=== PATIENT | female | born 1990 | race Caucasian/White ===

== ENCOUNTER 2017-10-21 09:57 | Inpatient (IN) ==
[2017-10-21] MEDS ORDERED: Ondansetron 4 MG/2 ML VIAL IVP PRN (10:09)
[2017-10-21] MEDS ORDERED: *HR* Nalbuphine 20 MG/ML AMPUL IVP PRN (10:09)
[2017-10-21] MEDS ORDERED: Famotidine 20 MG/2 ML VIAL IVP PRN (10:09)
[2017-10-21] MEDS ORDERED: Naloxone 0.4 MG/ML INJ IVP PRN (10:09)
[2017-10-21] MEDS ORDERED: Metoclopramide 10 MG/2 ML VIAL IVP PRN (10:09)
[2017-10-21] MEDS ORDERED: Ringers Solution, Lactated 1,000 ML IVC SCH (10:15)
[2017-10-21] MEDS ORDERED: miSOPROStol 25 MCG TABLET VG SCH (10:30)
[2017-10-21 10:34] LABS: Basophils # 0.1 K/mcL (0.0-0.2); Basophils % 0.4 %; Eosinophils # 0.2 K/mcL (0.0-0.6); Eosinophils % 1.2 %; Hemoglobin 12.6 g/dL (11.5-15.4); Immature Granulocytes % 1.2 % (0-4); Immature Platelets 5.1 % (1.1-6.1); Lymphocytes # 2.4 K/mcL (0.6-4.6); Lymphocytes % 14.9 %; Mean Corpuscular Hemoglobin 35.1 pg (28.0-33.3); Mean Corpuscular Volume 100.3 fL (83.0-100.0); Mean Platelet Volume 9.8 fL (9.4-12.4); Monocytes % 6.4 %; Neutrophils # 12.3 K/mcL (1.6-8.9); Platelet Count 292 K/mcL (140-400); Red Blood Count 3.59 M/mcL (3.82-4.97); Red Cell Distribution Width 13.5 % (11.5-14.5); Segmented Neutrophils % 75.9 %
--- NOTE | 2017-10-21 11:02 | OB/GYN History & Physical ---
Date of Encounter: 10/21/17 Time of Encounter: 10:50 Assessment and Plan (1) and not yet delivered in third trimester Current visit: Yes Status: Acute (2) 40 weeks gestation of Current visit: Yes Status: Acute (3) Elective induction of labor planned Current visit: Yes Status: Acute We will induce with a Zavala catheter and Cytotec plan is to anticipate vaginal delivery History of Present Illness HPI: Ms. Rees is a 27 year old female 4 para 2011 at 40-0/7 weeks by last menstrual period equal to 10 week ultrasound who presented for induction of labor secondary to term . She was wanting to try and go in labor on her own but wanted be delivered by her due date if she has not delivered. She denies any contractions denies any leaking fluid still having good movement. Patient is Rh+, rubella positive, GBS negative Past Med Surg Social Fam HX - Past Medical History Source: patient, old records reviewed Medical history: no medical history Psychiatric history: no psych history - Past Surgical History Surgical History: other (Suction dilatation and curettage, tonsillectomy) - Social History Smoking Status: Current every day smoker Packs per day: 0.5 Smokeless Tobacco Status: No Alcohol use: none Drug use: none Occupational status: employed Current living situation: Home - Independent Activity Level: Independent ambulation Recent Out of Country Travel Within the Last 8 Weeks: No Exposure or Possible Exposure to Illness During Travel: No - Family History Grandmother Living Status: Still Living Hx Family Cardiac Disorders: No Hx Family Respiratory Disorders: No Hx Family Cancer: No Hx Family GI Disorders: No Hx Family Genitourinary Disorders: No Hx Family Endocrine Disorder: No Hx Family Musculoskeletal Disorders: No Hx Family Neuromuscular Disorders: No Hx Family Neurologic Disorders: No Hx Family HEENT Disorders: No Hx Family Autoimmune Disorders: No Hx Family Reproductive Disorders: No Hx Family Psychosocial Disorders: No Hx Family Medical Disorders: No - Additional Family History Additional family history: Family history noncontributory Obstetrical History - Pregnancies : 4 Para: 2 Term: 2 : 1 Ab's: 1 Livin Medications and Allergies Vitamin Tablet 1 tab PO DAILY 06/23/16 [History] Breast Pump [BREAST PUMP] 1 each .ROUTE AD #1 each 06/24/16 [Rx] Ibuprofen [Motrin] 600 mg PO Q6H PRN #40 tablet 06/24/16 [Rx] 3 Allergy/AdvReac Type Severity Reaction Status Date / Time Penicillins Allergy Hives Verified 06/23/16 04:13 Review of System OB All systems PM: reviewed and no additional remarkable complaints except as stated Exam - Constitutional Constitutional: well developed, well nourished, no acute distress, average body habitus - HEENT HEENT: EOMI, PERRL - Neck Neck exam: full ROM - Lungs Respiratory exam: CTAB - Cardiovascular Cardiovascular exam: RRR - Abdomen Abdomen: Present: bowel sounds normal, gravid - Extremities Extremities exam: full ROM - Vulva Vulva: bilateral: normal - Vagina Vagina: Present: normal moisture - Cervix Dilation: 2 Effacement: 80 Station: -2 (Zavala catheter placed within the cervix 30 mL balloon inflated 25 g of Cytotec placed in the posterior fornix) - Uterus Uterus exam: Present: normal size Results Result Diagrams: 10/21/17 10:26 Abnormal lab results WBC 16.2 K/mcL (4.3-11.1) H 10/21/17 10:26 RBC 3.59 M/mcL (3.82-4.97) L 10/21/17 10:26 MCV 100.3 fL (83.0-100.0) H 10/21/17 10:26 MCH 35.1 pg (28.0-33.3) H 10/21/17 10:26 Neutrophils # 12.3 K/mcL (1.6-8.9) H 10/21/17 10:26 All other labs normal. - VTE Reasons for not Prescribing Prophylaxis: Treatment not Indicated - Low risk for VTE
[2017-10-21 11:11] LABS: Amphetamine Screen,Urine Negative ng/mL (Cutoff=1000); Barbiturate Screen,Urine Negative ng/mL (Cutoff=200); Benzodiazepines Screen,Urine Negative ng/mL (Cutoff=200); Cannabinoid Screen,Urine Negative ng/mL (Cutoff = 50); Cocaine Screen,Urine Negative ng/mL (Cutoff= 300); Opiate Screen,Urine Negative ng/mL (Cutoff=300); Phencyclidine Screen,Urine Negative ng/mL (Cutoff=25)
--- NOTE | 2017-10-21 14:07 | OB Labor Progress Note ---
Date of Encounter: 10/21/17 Time of Encounter: 14:00 Labor Progress Note - Subjective Subjective: Patient's catheter is out she is getting a little bit more uncomfortable and started tolerating the contractions. - Cervix Cervix: 3/80/-3 posterior AROM clear fluid - Heart Tones Heart Tones: heart tones 140s reactive - [place]: Contractions irregular every 2-4 minutes not picking up well at this time due to the way patient is sitting. - Plan Plan: Continue current care we will get epidural when ready plan is to anticipate vaginal delivery
--- NOTE | 2017-10-21 16:43 | OB Labor Progress Note ---
Date of Encounter: 10/21/17 Time of Encounter: 16:45 Labor Progress Note - Subjective Subjective: Patient and contractions were still not that uncomfortable. - Cervix Cervix: 4/80/-2 - Heart Tones Heart Tones: heart tones 140s reactive - [place]: Contractions every 2-3 minutes irregular - Plan Plan: We will augment with Pitocin plan is to anticipate vaginal delivery
[2017-10-21] MEDS ORDERED: Oxytocin 20 units/ LR 1000 mL 20 UNIT/1,000 ML BAG IVC SCH (16:45)
[2017-10-21] MEDS ORDERED: Oxytocin 20 units/ LR 1000 mL 20 UNIT/1,000 ML BAG IVC ONE (16:51)
[2017-10-21] MEDS ORDERED: *HR* Ropivacaine/PF 0.2% 10 ML AMPUL ONE (18:07)
[2017-10-21] MEDS ORDERED: *HR* FentaNYL (PF) 100 MCG/2 ML VIAL ONE (18:08)
[2017-10-21] MEDS ORDERED: Epidural Premix (fent/bupiv) 110 ML EP ONE (18:08)
--- NOTE | 2017-10-21 18:37 | Anesthesia Evaluation PreOp ---
Date of Encounter: 10/21/17 Time of Encounter: 18:35 - Past History Planned Operation: [place] Cardiac History: Denies any Significant Hx Pulmonary History: Smoker (1/2 pack per day) DISPATCH MANAGER History: Denies Any Significant HX Other Medical History: Denies Any Significant HX Anesthesia History: No Prior Anesthetic Complications, Past Anesthesia : Yes () Alcohol Use: none Drug use: none Medications and Allergies Vitamin Tablet 1 tab PO DAILY 06/23/16 [History] Breast Pump [BREAST PUMP] 1 each .ROUTE AD #1 each 06/24/16 [Rx] Ibuprofen [Motrin] 600 mg PO Q6H PRN #40 tablet 06/24/16 [Rx] 3 Allergy/AdvReac Type Severity Reaction Status Date / Time Penicillins Allergy Hives Verified 06/23/16 04:13 - Meds/Allergy Pre-op Review Medications Reviewed: Yes Allergies Reviewed: Yes Beta Blockers on Current Med List: No Anesthesia Results - Labs 10/21/17 10:26 Anesthesia Exam - HEENT Pupil (Motor): Pupils equal Mallampati: II Teeth: Normal Oral Opening: Greater than 3 - DISPATCH MANAGER LOC: Oriented DISPATCH MANAGER Motor: Normal RUE, Normal LUE, Normal RLE, Normal LLE, Normal Face DISPATCH MANAGER Sensory: Normal: RUE, LUE, RLE, LLE, Face Anesthesia Assess/Plan ASA Score: 2 Modified [place] Scale for Level of Consciousness: Cooperative, oriented, and tranquil Anesthetic Plan: Regional Monitoring Plan: Standard Monitors
[2017-10-21] MEDS ORDERED: EPHEDrine 50 MG/ML VIAL IVP PRN (18:40)
[2017-10-21] MEDS ORDERED: *HR* FentaNYL (PF) 100 MCG/2 ML VIAL EP ONE (18:40)
[2017-10-21] MEDS ORDERED: *HR* Ropivacaine/PF 0.2% 10 ML AMPUL EP ONE (18:40)
--- NOTE | 2017-10-21 18:40 | Anesthesia Procedures ---
Date of Encounter: 10/21/17 Time of Encounter: 18:38 Procedures: Anesthesia - Epidural/Spinal Patient ID/Chart reviewed: Yes Patient examined: Yes OB Eval: Contractions: Non-stressed pattern Consent Obtained: Yes Supplemental Oxygen: None/Room Air Site Prep: Aseptic Technique Patient position: upright Local Anesthetic: Lidocaine 1% Amount of Local Anesthetic used: 3 Touhy Needle Gauge: 18 Touhy Needle Depth (cm): 4 Catheter Depth at Skin (cm): 12 Test Dose (1.5% Lido + Epi): Volume given (mls): 3 Test Dose Result: Negative Loading Dose: Fentanyl (mcg): 100 Loading Dose: Other: 6cc 0.2% ropivicaine Loading Dose Administered: Thru Touhy Needle Infusion Med: 0.125% Bupivacaine w/ 2 mcg/ml Fentanyl Infusion Rate (mls/hr): [address]: Tegaderm Interspace Used: L3-L4 Loss of Resistance (MEHDI): Yes Blood: No CSF: No Paresthesia: No
[2017-10-21] MEDS ORDERED: Epidural Premix (fent/bupiv) 110 ML EP SCH (18:45)
[2017-10-21] MEDS ORDERED: 0.9 % Sodium Chloride 1,000 ML ONE (20:36)
[2017-10-22] MEDS ORDERED: Epidural Premix (fent/bupiv) 110 ML EP ONE (01:15)
[2017-10-22] MEDS ORDERED: Oxytocin 20 units/ LR 1000 mL 20 UNIT/1,000 ML BAG IVC ONE (02:47)
[2017-10-22] MEDS ORDERED: *HR* Succinylcholine 200 MG/10 ML VIAL IVP ONE (03:18)
[2017-10-22] MEDS ORDERED: *HR* Propofol 200 MG/20 ML VIAL IVP ONE (03:18)
[2017-10-22 03:26] LABS: Basophils % 0.2 %; Eosinophils # 0.1 K/mcL (0.0-0.6); Eosinophils % 0.5 %; Hematocrit 31.1 % (35.3-44.9); Immature Granulocytes % 0.8 % (0-4); Immature Platelets 4.9 % (1.1-6.1); Lymphocytes # 2.8 K/mcL (0.6-4.6); Lymphocytes % 13.8 %; Mean Corpuscular HGB Conc 34.7 g/dL (31.6-35.5); Mean Corpuscular Hemoglobin 35.6 pg (28.0-33.3); Mean Corpuscular Volume 102.6 fL (83.0-100.0); Mean Platelet Volume 9.9 fL (9.4-12.4); Monocytes # 1.5 K/mcL (0.0-1.3); Monocytes % 7.5 %; Neutrophils # 15.4 K/mcL (1.6-8.9); Platelet Count 255 K/mcL (140-400); Red Blood Count 3.03 M/mcL (3.82-4.97); Red Cell Distribution Width 13.4 % (11.5-14.5); Segmented Neutrophils % 77.2 %
[2017-10-22 03:27] LABS: Hemoglobin 10.8 g/dL (11.5-15.4)
[2017-10-22] MEDS ORDERED: Ringers Solution, Lactated 500 ML IVC ONE (03:42)
--- NOTE | 2017-10-22 03:52 | OB/GYN Procedure Note ---
Delivery - Delivery Date: 10/22/17 Provider: Luis Guo Intrapartum events: none Delivery induction: wang, misoprostol Delivery augmentation: rupture of membranes, pitocin Delivery monitor: external FHT, external uterine, internal FHT, internal uterine Anesthesia: epidural Estimated Blood Loss: 1,000 ( hemorrhage due to placenta accreta) - (s) A Delivery Date: 10/22/17 Infant Delivery Time: 02:23 Presentation: vertex Position: [place] Route of delivery: Gender: Female Viability: Viable Pounds: 6 Ounces: 4 Weight Gram: 2.83 kg at 1 minute: 8 at 5 mins: 9 Shoulder Dystocia: not encountered Specimens collected: cord blood Placenta: spontaneous, retained Cord: nuchal cord (x 2), nuchal reduced - Repair Episiotomy: none Laceration Description: None - Complications Delivery complications: hemorrhage, retained placenta, other ( placenta accreta) Delivery comments: Patient is a 27-year-old 3 para 2 at 40-0/7 weeks who presented for induction of labor secondary to term . Patient had an uncomplicated course and wanted to be induced at her due date. Patient reports leg delivery with Wang catheter and Cytotec was placed. Catheter fell out she was 3-4 cm patient was progressing slowly we did artificial rupture with clear fluid and Pitocin was started. She started having deep variable decelerations Pitocin had been turned off and an amnioinfusion was started. Decelerations resolved and Pitocin was restarted. Patient became complete and pushed twice delivering a viable female in right occiput anterior presentation at 0 223. There was a nuchal cord 2 loose and reduced no meconium the was bulb suctioned on the abdomen. Apgars were 8 at 1 minute, 9 at 5 minutes, infant weight was 6 lbs. 4 oz. Placenta did deliver spontaneously however as the placenta was at the introitus it did require some gentle manipulation to get the remaining membranes to separate. Calcine Furnace Loader was Dr. Guo, anesthesia epidural, estimated blood loss was 1000 mL. Perineum cervix and vagina was visualized intact. It was noted that patient continued to bleed quite heavily 0.2 mg Methergine was given IM did not really slowed down the bleeding and she was noted to have what appeared to be retained placenta. Bedside curettage was performed and was noted patient did have retained placenta and it appeared she had a placenta accreta patient continued to bleed 600 g of Cytotec was placed rectally and a second dose of Methergine was given IM. Patient was becoming symptomatic she was typed and crossed for 2 units and CBC obtained hemoglobin was down to 10.6. We were able to eventually get the bleeding under control the endometrial cavity still had a rough characteristic to it but I think that was just from the curettage. Rectal patient for a good 10 minutes with minimal bleeding noted on the perineum. Did explore the endometrial cavity no clots were noted and uterus was well contracted. It was at this point we terminated what we were doing patient will remain on labor and delivery for the next 4 hours if she continues to bleed when he taken back to the operating room for either another D&C or possible hysterectomy.
[2017-10-22] MEDS ORDERED: Ibuprofen 600 MG TABLET PO ONE (06:20)
[2017-10-22 07:52] LABS: Basophils % 0.2 %; Eosinophils % 0.2 %; Hematocrit 24.8 % (35.3-44.9); Immature Granulocytes % 0.9 % (0-4); Lymphocytes # 1.8 K/mcL (0.6-4.6); Lymphocytes % 7.7 %; Mean Corpuscular HGB Conc 35.5 g/dL (31.6-35.5); Mean Corpuscular Hemoglobin 36.1 pg (28.0-33.3); Mean Corpuscular Volume 101.6 fL (83.0-100.0); Mean Platelet Volume 10.6 fL (9.4-12.4); Monocytes # 1.2 K/mcL (0.0-1.3); Monocytes % 5.1 %; Platelet Count 220 K/mcL (140-400); Red Blood Count 2.44 M/mcL (3.82-4.97); Red Cell Distribution Width 13.2 % (11.5-14.5); Segmented Neutrophils % 85.9 %
[2017-10-22 07:54] LABS: Hemoglobin 8.8 g/dL (11.5-15.4)
[2017-10-22] MEDS ORDERED: Acetaminophen 325 MG TABLET PO PRN (08:57)
[2017-10-22] MEDS ORDERED: Measles/Mumps/Rubella Vacc 0.5 ML VIAL SQ PRN (08:57)
[2017-10-22] MEDS ORDERED: BREAST PUMP TP SCH (08:57)
[2017-10-22] MEDS ORDERED: Oxytocin 20 units/ LR 1000 mL 20 UNIT/1,000 ML BAG IVC SCH (08:57)
[2017-10-22] MEDS ORDERED: NON-FORMULARY MEDICATION 1 EACH EACH (Prenatal Vitamin Tablet 1 TAB) PO SCH (09:00)
[2017-10-22] MEDS: CeFAZolin Premix DUPLEX 2,000 MG/50 ML BAG IVPB SCH ×2 (09:51→17:53)
[2017-10-22] MEDS: *HR* HYDROcodone/Acet 5/325 mg TABLET PO PRN ×3 (10:43→21:56)
[2017-10-22] MEDS: Prenatal Vit/FA 1 EACH TABLET PO SCH (10:43)
[2017-10-22] MEDS ORDERED: ceFAZolin 2,000 MG in D5% in Water 100 ML IVPB SCH (16:00)
[2017-10-23] MEDS: CeFAZolin Premix DUPLEX 2,000 MG/50 ML BAG IVPB SCH (01:33)
[2017-10-23 04:11] LABS: Basophils # 0.1 K/mcL (0.0-0.2); Basophils % 0.4 %; Eosinophils # 0.3 K/mcL (0.0-0.6); Eosinophils % 2.1 %; Hematocrit 20.5 % (35.3-44.9); Hemoglobin 7.3 g/dL (11.5-15.4); Immature Platelets 3.8 % (1.1-6.1); Lymphocytes # 4.4 K/mcL (0.6-4.6); Lymphocytes % 32.1 %; Mean Corpuscular HGB Conc 35.6 g/dL (31.6-35.5); Mean Corpuscular Hemoglobin 36.9 pg (28.0-33.3); Mean Corpuscular Volume 103.5 fL (83.0-100.0); Mean Platelet Volume 10.3 fL (9.4-12.4); Monocytes # 1.1 K/mcL (0.0-1.3); Monocytes % 7.7 %; Neutrophils # 7.8 K/mcL (1.6-8.9); Platelet Count 231 K/mcL (140-400); Red Blood Count 1.98 M/mcL (3.82-4.97); Red Cell Distribution Width 13.9 % (11.5-14.5); Segmented Neutrophils % 56.7 %
[2017-10-23] MEDS: *HR* HYDROcodone/Acet 5/325 mg TABLET PO PRN (07:42)
[2017-10-23] MEDS: Prenatal Vit/FA 1 EACH TABLET PO SCH (07:42)
[2017-10-23 08:09] VITALS: BP 104/63
--- NOTE | 2017-10-23 10:15 | Discharge Summary ---
Date of Encounter: 10/23/17 Time of Encounter: 10:12 - Discharge Diagnosis (1) hemorrhage Priority: Secondary Status: Acute Qualifiers: hemorrhage type: third-stage Qualified Code(s): O72.0 - Third- stage hemorrhage (2) Anemia associated with acute blood loss Priority: Secondary Status: Acute Comments: Pt denies s/sx anemia today. (3) (normal spontaneous vaginal delivery) Priority: Primary Status: Acute Comments: Pt meeting milestones. She is requesting discharge home today. - Discharge Medications Prescriptions: Docusate [Colace] 100 mg PO BID #60 capsule Ferrous Sulfate 325 mg PO BID #60 tablet Ibuprofen [Motrin] 600 mg PO Q6H PRN #40 tablet PRN Reason: Cramping Home Medications: Vitamin Tablet 1 tab PO DAILY 06/23/16 [History] Breast Pump [BREAST PUMP] 1 each .ROUTE AD #1 each 06/24/16 [Rx] Docusate [Colace] 100 mg PO BID #60 capsule 10/23/17 [Rx] Ferrous Sulfate 325 mg PO BID #60 tablet 10/23/17 [Rx] Ibuprofen [Motrin] 600 mg PO Q6H PRN #40 tablet 10/23/17 [Rx] Allergies/Adverse Reactions: 3 Allergy/AdvReac Type Severity Reaction Status Date / Time Penicillins Allergy Hives Verified 06/23/16 04:13 Data Procedures and tests throughout hospitalization: Laboratory Tests 10/21/17 10/21/17 10/22/17 10:26 10:30 02:55 WBC 16.2 H RBC 3.59 L Hgb 12.6 Hct 36.0 MCV 100.3 H MCH 35.1 H MCHC 35.0 RDW 13.5 Plt Count 292 MPV 9.8 Immature Gran % 1.2 Seg Neutrophils % 75.9 Lymphocytes % 14.9 Monocytes % 6.4 Eosinophils % 1.2 Basophils % 0.4 Neutrophils # 12.3 H Lymphocytes # 2.4 Monocytes # 1.0 Eosinophils # 0.2 Basophils # 0.1 Immature Plt Fraction 5.1 Urine Opiates Screen Negative Ur Barbiturates Screen Negative Ur Phencyclidine Scrn Negative Ur Amphetamines Screen Negative U Benzodiazepines Scrn Negative Urine Cocaine Screen Negative U Marijuana (THC) Screen Negative Blood Type O POSITIVE Antibody Screen NEGATIVE Crossmatch See Detail 10/22/17 10/22/1710/23/18 03:19 07:30 04:03 WBC 20.0 H 23.3 H 13.7 H RBC 3.03 L 2.44 L 1.98 L Hgb 10.8 L D 8.8 L D 7.3 L D Hct 31.1 L 24.8 L 20.5 L MCV 102.6 H 101.6 H 103.5 H MCH 35.6 H 36.1 H 36.9 H MCHC 34.7 35.5 35.6 H RDW 13.4 13.2 13.9 Plt Count 255 220 231 MPV 9.9 10.6 10.3 Immature Gran % 0.8 0.9 1.0 Seg Neutrophils % 77.2 85.9 56.7 Lymphocytes % 13.8 7.7 32.1 Monocytes % 7.5 5.1 7.7 Eosinophils % 0.5 0.2 2.1 Basophils % 0.2 0.2 0.4 Neutrophils # 15.4 H 20.0 H 7.8 Lymphocytes # 2.8 1.8 4.4 Monocytes # 1.5 H 1.2 1.1 Eosinophils # 0.1 0.0 0.3 Basophils # 0.0 0.0 0.1 Immature Plt Fraction 4.9 3.8 Urine Opiates Screen Ur Barbiturates Screen Ur Phencyclidine Scrn Ur Amphetamines Screen U Benzodiazepines Scrn Urine Cocaine Screen U Marijuana (THC) Screen Blood Type Antibody Screen Crossmatch Labs on day of discharge: Labs from last 24 hours 10/23/17 04:03 WBC 13.7 H RBC 1.98 L Hgb 7.3 L D Hct 20.5 L MCV 103.5 H MCH 36.9 H MCHC 35.6 H RDW 13.9 Plt Count 231 MPV 10.3 Immature Gran % 1.0 Seg Neutrophils % 56.7 Lymphocytes % 32.1 Monocytes % 7.7 Eosinophils % 2.1 Basophils % 0.4 Neutrophils # 7.8 Lymphocytes # 4.4 Monocytes # 1.1 Eosinophils # 0.3 Basophils # 0.1 Immature Plt Fraction 3.8 Date of admission: 10/21/17 09:57 Primary care physician: PCP NONE Consults: 10/22/17 08:57 Consult to Registered Nurse Float Pool [CONS] Routine Comment: Vaginal delivery, consult needed Discharging clinician: Eliz Mckay Anticipated date of discharge: 10/23/17 - Patient Status Disposition: Home, Self-Care Condition: Good Functional capacity at discharge: independent ambulation Overall status at discharge: patient is progressing back to baseline - Discharge Instructions Follow Up With: NONE,PCP [Primary Care Provider] - Luis Guo DO [Partnered Physician] - - Diet and Activity Activity: increase activity as tolerated Hospital Course Reason for admission: induction of labor Delivery: Episiotomy: none Laceration: none Other procedures: curettage complications: retained placenta, other (anemia) Discharge diagnosis: IUP at term delivered [place] baby: female Hospital course: Patient is a 27-year-old 3 para 2 at 40-0/7 weeks who presented for induction of labor secondary to term . Patient had an uncomplicated course and wanted to be induced at her due date. Induction started with Zavala catheter and Cytotec was placed. Catheter fell out she was 3-4 cm patient was progressing slowly we did artificial rupture with clear fluid and Pitocin was started. She started having deep variable decelerations Pitocin had been turned off and an amnioinfusion was started. Decelerations resolved and Pitocin was restarted. Patient became complete and pushed twice delivering a viable female in right occiput anterior presentation at 0223. Apgars were 8 at 1 minute, 9 at 5 minutes, infant weight was 6 lbs. 4 oz. Placenta did deliver spontaneously however as the placenta was at the introitus it did require some gentle manipulation to get the remaining membranes to separate. Bookmobile Clerk was Dr. Guo, anesthesia epidural, estimated blood loss was 1000 mL. Perineum cervix and vagina was visualized intact. It was noted that patient continued to bleed quite heavily 0.2 mg Methergine was given IM did not really slowed down the bleeding and she was noted to have what appeared to be retained placenta. Bedside curettage was performed and was noted patient did have retained placenta and it appeared she had a placenta accreta patient continued to bleed 600 g of Cytotec was placed rectally and a second dose of Methergine was given IM. Patient was becoming symptomatic she was typed and crossed for 2 units and CBC obtained hemoglobin was down to 10.6. We were able to eventually get the bleeding under control. Bleeding remained well controlled throughout period. Hgb dropped from 12.6 to 7.3. Pt remained without sx of anemia and was discharged home on iron BID. Time Attestation: Total time spent providing and/or coordinating discharge services: Time Spent: Less than 30 minutes Exam - Constitutional Vitals: Temp Pulse Resp BP Pulse Ox 97.5 F L 88 16 104/63 99 10/23/17 07:45 10/23/17 07:45 10/23/17 07:45 10/23/17 07:45 10/23/17 07:45 General appearance IM: A&O X 3 - Respiratory Respiratory exam: Present: CTAB - Cardiovascular Cardiovascular exam IM: Present: RRR, +S1, +S2 - GI/Abdominal GI/Abdominal exam IM: soft - Rectal Rectal exam: deferred - External exam: normal external exam Uterine Tone: Firm Uterus Position: 3 Fingers Below Umbilicus - Extremities Exam Extremities exam IM: Present: normal inspection - Neurological Exam Neurological exam: normal gait, oriented X3 - Psychiatric Additional comments: reports she is tired but otherwise good mood
== END 2017-10-23 13:45 | disposition home or self-care (01) | DRG 560 ==
LOC: 1NENULAB 09:57 → 1NENUOBS 10-22 08:49
PROVIDERS: ADMIT Obstetrics & Gynecology; ATTEND Obstetrics & Gynecology